=== PATIENT | male | born 1955 | race Caucasian/White ===

== ENCOUNTER → 2018-05-06 | Outpatient (CLI) | payer BC | END | disposition home or self-care (01) | LOC: HKI 10:14 | DX: M70.62 Trochanteric bursitis, left hip (principal); M70.61 Trochanteric bursitis, right hip; M76.32 Iliotibial band syndrome, left leg; M76.31 Iliotibial band syndrome, right leg; I10 Essential (primary) hypertension; E11.8 Type 2 diabetes mellitus with unspecified complications; B19.20 Unspecified viral hepatitis C without hepatic coma | CPT/HCPCS: 73523 ==

== ENCOUNTER → 2018-07-26 | Outpatient (CLI) | payer BC | END | disposition home or self-care (01) | LOC: HKI 13:36 | DX: M70.62 Trochanteric bursitis, left hip (principal); M70.61 Trochanteric bursitis, right hip | CPT/HCPCS: 20610 ==

== ENCOUNTER → 2018-08-05 | Outpatient (CLI) | payer BC | END | disposition home or self-care (01) | LOC: HKI 10:00 | DX: M70.62 Trochanteric bursitis, left hip (principal); M70.61 Trochanteric bursitis, right hip | CPT/HCPCS: 20610 ==

== ENCOUNTER → 2019-02-28 | Outpatient (CLI) | payer BC | END | disposition home or self-care (01) | LOC: HKI 09:52 | DX: M70.62 Trochanteric bursitis, left hip (principal); M70.61 Trochanteric bursitis, right hip | CPT/HCPCS: G0463 ==